=== PATIENT | male | born 1980 | race Caucasian/White ===

== ENCOUNTER 2022-04-12 11:00 | Emergency (ER) | payer OTHER | END 2022-04-12 13:14 | disposition home or self-care (01) | LOC: FER 11:00 | DX: S76.312A Strain of muscle, fascia and tendon of the posterior muscle group at thigh level, left thigh, initial encounter (principal); X50.1XXA Overexertion from prolonged static or awkward postures, initial encounter; Y93.64 Activity, baseball | CPT/HCPCS: 73552; 73564 ==